=== PATIENT | female | born 1930 | race Caucasian/White ===

== ENCOUNTER → 2016-05-19 | Outpatient (CLI) | payer OTHER, MEDICARE ==
[~2016-05-19] MED LIST: A-CARO-2525000 UNIT PO; ATIVAN0.5 MG PO; AVAPRO PO; BETA CAROTENE1 GM; BIOTIN1 MG; BIOTIN1 MG PO; BYSTOLIC10 MG PO; CALCIUM 600 +1 EAC1 PO; CALCIUM 600 WI1 EAC5 PO; CENTRUM SILVER1 EAC3 PO; DETROL LA4 MG PO; DILTIAZEM ER180 M1 OR; DILTIAZEM ER240 M1 PO; ENABLEX15 MG PO; EVISTA; EVISTA PO; FISH OIL 1,0001 EAC5 PO; LISINOPRIL10 MG PO; LOSARTAN POTASS25 MG PO; MELOXICAM7.5 MG PO; MOBIC7.5 MG PO; RANITIDINE; RANITIDINE HCL300 M1 PO; SIMVASTATIN20 MG PO; VALIUM2 MG PO; VESICARE 5 MG TA5 MG PO; VITAMIN B-12500 MCG PO; VITAMIN D1000 UNI1 PO; ZOCOR 10 MG TAB10 MG; ZOLOFT50 MG PO; [UNRECOGNIZED DRUG - OTHER] PO
== END ==
LOC: ULTRA 02:59
DX: R10.9 Unspecified abdominal pain (principal)

== ENCOUNTER → 2016-07-16 | Outpatient (CLI) | payer OTHER, MEDICARE | LOC: ULTRA 12:37 | DX: R82.99 Other abnormal findings in urine (principal); R31.9 Hematuria, unspecified ==

== ENCOUNTER 2017-06-02 20:57 | Emergency (ER) | payer OTHER, MEDICARE ==
[~2017-06-02] VITALS: Ht 167.6 cm; Wt 59.9 kg
[~2017-06-02 20:57] MED LIST changes: +NORCO 5-325 TA1 EACH PO
[2017-06-02 22:13] VITALS: BP 158/60
== END 2017-06-02 22:13 | disposition home or self-care (01) ==
LOC: ER 20:57
DX: S60.221A Contusion of right hand, initial encounter (principal); S00.81XA Abrasion of other part of head, initial encounter; F10.129 Alcohol abuse with intoxication, unspecified; I10 Essential (primary) hypertension; E78.5 Hyperlipidemia, unspecified; W22.8XXA Striking against or struck by other objects, initial encounter; Y93.89 Activity, other specified; Y92.89 Other specified places as the place of occurrence of the external cause; Y99.8 Other external cause status

== ENCOUNTER → 2017-08-10 | Outpatient (CLI) | payer OTHER, MEDICARE | LOC: RAD 13:28 | DX: Z13.820 Encounter for screening for osteoporosis (principal); M85.89 Other specified disorders of bone density and structure, multiple sites ==

== ENCOUNTER → 2017-08-26 | Outpatient (CLI) | payer OTHER, MEDICARE ==
--- NOTE | ~2017-08-26 | PFR/MVV ---
[facility] [place] [address] PULMONARY FUNCTION MVV/REPORT Name: BRIAN RINCON Room #: REG [facility]#: [id number] Admission: 08/26/17 Attend Phys: Terry Curiel MD Discharge: Date of : 32 Report #: [id number] THIS REPORT FOR: //name// >> SPIROMETRY: (BTPS) Height: in cm Weight: lbs kg Exam Date: PRE-RX POST-RX PRED BEST %PRED BEST %PRED %CHG FVC LITERS . . . . . . FEV1 LITERS . . . . . . FEV1/FVC % . . . . . . FEW18-62% L/Sec . . . . . . PEF L/SEC . . . . . . FEF50/FIF50 UNITLESS . . . . . . MVV L/Min . . . f 1/Min . . . >> LUNG VOLUMES: (BTPS) PRE-RX POST-RX PRED AVG %PRED AVG %PRED %CHG VC Liters . . . . . . TLC Liters . . . . . . RV Liters . . . . . . RV/TLC % . . . . . . FRC PL Liters . . . . . . FRC N2 Liters . . . . . . ERV Liters . . . . . . IC Liters . . . . . . >> DIFFUSION: DLCO ml/Min/mmHg . . . . . . DL Obdulio ml/Min/mmHg . . . . . . DLCO/VA ml/Min/mmHg . . . . . . VA Liters . . . . . . COMMENTS: COMMENTS: >> RESISTANCE: [facility] [address] [place] [address] PULMONARY FUNCTION MVV/REPORT Name: BRIAN RINCON Room #: REG [facility]#: [id number] Admission: 08/26/17 Attend Phys: Terry Curiel MD Discharge: Date of : 32 Report #: [id number] PRE-RX PRED AVG %PRED Raw Total cmH20/L/Sec . . . Raw Insp cmH20/L/Sec . . . Raw Exp cmH20/L/Sec . . . Raw cmH20/L/Sec . . . Gaw L/Sec/cmH20 . . . sRaw cmH20 Sec . . . sGaw l/cmH20 Sec . . . Vtq Liters . . . # = OUTSIDE 95% CONFIDENCE INTERVAL CALIBRATION: PRED: 3.00 ACTUAL: EXP 3.01 INSP 3.02 [id number] [facility] [id number] >> INTERPRETATION/IMPRESSION: CC: Terry Curiel DATE OF SERVICE: 08/26/2017 Full pulmonary function test reveals normal spirometry. There is some suggestion of airflow obstruction as the FEV1/FVC ratio is reduced. However, this FEV1 is greater than 100% of predicted and this may be a normal variant. There is no significant change with bronchodilators. LUNG VOLUMES: Normal. DLCO normal. <ELECTRONICALLY SIGNED> By: Ramos Pabon MD 08/29/17 1122 Ramos Pabon MD /nt
== END ==
LOC: PUL 09:21
DX: R06.00 Dyspnea, unspecified (principal)

== ENCOUNTER → 2017-12-07 | Outpatient (CLI) | payer OTHER, MEDICARE | LOC: MRI 10:00 | DX: S32.010D Wedge compression fracture of first lumbar vertebra, subsequent encounter for fracture with routine healing (principal); M51.36 Other intervertebral disc degeneration, lumbar region; M48.062 Spinal stenosis, lumbar region with neurogenic claudication; M25.78 Osteophyte, vertebrae; M51.26 Other intervertebral disc displacement, lumbar region; G89.29 Other chronic pain; X58.XXXD Exposure to other specified factors, subsequent encounter ==

== ENCOUNTER → 2018-05-03 | Outpatient (CLI) | payer OTHER, MEDICARE | LOC: MRI 12:16 | DX: S83.242A Other tear of medial meniscus, current injury, left knee, initial encounter (principal); S83.282A Other tear of lateral meniscus, current injury, left knee, initial encounter; M17.12 Unilateral primary osteoarthritis, left knee; G89.29 Other chronic pain; X58.XXXA Exposure to other specified factors, initial encounter; Y93.89 Activity, other specified; Y92.89 Other specified places as the place of occurrence of the external cause; Y99.8 Other external cause status ==

== ENCOUNTER → 2018-08-14 | Outpatient (CLI) | payer OTHER, MEDICARE ==
--- NOTE | 2018-08-14 11:34 | 2DMMODE ---
[facility] [place] [address] 2 D/M-MODE ECHOCARDIOGRAM Name: BRIAN RINCON Room #: REG [facility]#: [id number] ������������� Admission: 08/14/18 ������������� Attend Phys: Terry Curiel, Discharge: ��� ������������� ��� Date of : 32 Date of Service: 08/14/18 1134 �� Report #: [id number] �������� ��������������������������������������������[id number] THIS REPORT FOR: //name// APPROVED REPORT Study performed: 08/14/2018 10:12:40 EXAM: Comprehensive 2D, Doppler, and color-flow Echocardiogram Patient Location: Out-Patient Status: routine BSA: 1.64 HR: 85 bpm BP: 128/85 mmHg Rhythm: NSR Other Information Study Quality: Good Indications Swelling in lower extremities 2D Dimensions RVDd: 30.35 mm IVSd: 14.33 (7-11mm) LVOT Diam: 20.38 (18-24mm) LVDd: 33.32 mm PWd: 11.35 (7-11mm) Ascending Ao: 34.12 (22-36mm) LVDs: 26.18 (25-40mm) Aortic Root: 30.51 mm IVC: 13.00 mm Volumes Left Atrial Volume (Systole) Single Plane 4CH: 37.14 mL Single Plane 2CH: 42.01 mL LA ESV Index: 28.00 mL/m2 Aortic Valve AoV Peak Josh.: 1.03 m/s AO Peak Gr.: 4.28 mmHg LVOT Max P.33 mmHg LVOT Max V: 0.58 m/s LAKE Vmax: 1.82 cm2 Mitral Valve E/A Ratio: 0.5 MV Decel. Time: 84.37 ms MV E Max Josh.: 0.43 m/s [facility] [employer] [place] [address] 2 D/M-MODE ECHOCARDIOGRAM Name: BRIAN RINCON Room #: [facility]#: [id number] ������������� Admission: 08/14/18 ������������� Attend Phys: Terry Curiel, Discharge: ��� ������������� ��� Date of : 32 Date of Service: 08/14/18 1134 �� Report #: [id number] �������� ��������������������������������������������[id number] MV A Josh.: 0.93 m/s MV PHT: 24.47 ms IVRT: 115.34 ms Pulmonary Valve PV Peak Josh.: 0.71 m/s PV Peak Gr.: 2.02 mmHg Pulmonary Vein P Vein S: 0.61 m/s P Vein A: 0.61 m/s P Vein D: 0.38 m/s P Vein A Dur.: 120.0 msec P Vein S/D Ratio: 1.61 Tricuspid Valve TR Peak Josh.: 2.35 m/s TR Peak Gr.: 22.13 mmHg Left Ventricle The left ventricle is normal size. Mild concentric left ventricular hypertrophy. Left ventricular systolic function is borderline. LVEF is 50%. Mild diastolic dysfunction is present (impaired relaxation pattern). Right Ventricle The right ventricle is normal size. The right ventricular systolic function is normal. Atria Left atrium is at the upper limits of normal. 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 Right atrium is dilated. Aortic Valve Aortic valve leaflets are mildly thickened. No aortic regurgitation is present. There is no aortic valvular stenosis. Mitral Valve Mild mitral annular calcification. Mild mitral regurgitation. No evidence of mitral valve stenosis. Tricuspid Valve The tricuspid valve is normal in structure. Moderate tricuspid regurgitation. Estimated PAP is 27mmHg Pulmonic Valve The pulmonary valve is normal in structure. Trace to mild pulmonic regurgitation. [facility] [address] [place] [address] 2 D/M-MODE ECHOCARDIOGRAM Name: BRIAN RINCON Carlos [facility]: [facility] [id number] ������������� Admission: 08/14/18 ������������� Attend Phys: Terry Curiel, Discharge: ��� ������������� ��� Date of : 32 Date of Service: 08/14/18 1134 �� Report #: [id number] �������� ��������������������������������������������[id number] [employer] The aortic root is normal in size. IVC is normal in size and collapses >50% with inspiration. Pericardium There is no pericardial effusion. <Conclusion> LVEF is 45%. The left ventricle is normal size. LVEF is 50%. Left atrium is at the upper limits of normal. 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 Right atrium is dilated. Aortic valve leaflets are mildly thickened. Mild mitral annular calcification. Mild mitral regurgitation. The tricuspid valve is normal in structure. Moderate tricuspid regurgitation. Estimated PAP is 27mmHg The pulmonary valve is normal in structure. Trace to mild pulmonic regurgitation. There is no pericardial effusion. ��������������������������������������������� <ELECTRONICALLY SIGNED> ���������������������������������������� By: Emmett Conway MD ��������������������������������������������� 08/14/18 1134 1134 1134 Emmett Conway MD /INF
== END ==
LOC: CV 09:55
DX: I08.8 Other rheumatic multiple valve diseases (principal); I51.7 Cardiomegaly

== ENCOUNTER → 2019-08-17 | Outpatient (CLI) | payer OTHER, MEDICARE ==
[2019-08-17 10:01] LABS: CALCIUM 8.8 mg/dL (8.5-10.1); CREATININE 1.1 mg/dL (0.6-1.0); POTASSIUM 4.1 mmol/L (3.5-5.1)
== END ==
LOC: CAT 09:06
PROVIDERS: ATTEND Nurse Practitioner
DX: J98.11 Atelectasis (principal); J92.9 Pleural plaque without asbestos; K57.30 Diverticulosis of large intestine without perforation or abscess without bleeding; N20.0 Calculus of kidney; J84.9 Interstitial pulmonary disease, unspecified; M54.5 Low back pain; G89.29 Other chronic pain; R06.02 Shortness of breath; K59.09 Other constipation

== ENCOUNTER → 2019-08-28 | Outpatient (CLI) | payer OTHER, MEDICARE | LOC: ULTRA 09:31 | PROVIDERS: ATTEND Nurse Practitioner | DX: M25.462 Effusion, left knee (principal) ==

== ENCOUNTER → 2019-11-26 | Outpatient (CLI) | payer OTHER, MEDICARE | LOC: CAT 10:19 | PROVIDERS: ATTEND Family Medicine | DX: N20.0 Calculus of kidney (principal); R90.82 White matter disease, unspecified ==

== ENCOUNTER → 2020-09-01 | Outpatient (CLI) | payer OTHER, MEDICARE ==
[2020-09-01 11:18] LABS: CREATININE 0.9 mg/dL (0.6-1.0)
== END ==
LOC: LAB 10:11 → RAD 10:11
PROVIDERS: ATTEND Family Medicine
DX: I70.0 Atherosclerosis of aorta (principal); R91.8 Other nonspecific abnormal finding of lung field; M43.8X6 Other specified deforming dorsopathies, lumbar region